=== PATIENT | female | born 1970 | race Caucasian/White ===

== ENCOUNTER 2021-11-11 16:38 | Inpatient (IN) | payer BC, SELFPAY ==
[2021-11-11 16:53] VITALS: BMI 25.1
[2021-11-11 16:54] VITALS: BP 148/106; PULSE 97; RESP 18; TEMP 36.5; O2SAT 98
[2021-11-11] MEDS: trazodone 50 mg Tablet PO (21:53)
[2021-11-11] MEDS: quetiapine 25 mg Tablet 50 MG PO (21:53)
[2021-11-11] MEDS: CLONazepam 0.5 mg Tablet PO (21:53)
[2021-11-11 22:00] VITALS: RESP 16
--- NOTE | 2021-11-12 04:39 | PC.NURSE ---
PT HAS BEEN UP MOST OF NIGHT AND NOT BEEN ABLE TO SLEEP MORE THAN SHORT PERIODS. 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 PT AGITATED ABOUT HER PHONE NOT BEING BROUGHT TO NPU. DOES NOT FEEL NEED TO BE HERE SHE STATES THAT THIS WAS ALL A MISUNDERSTANDING AND WAS NOT A SUICIDE ATTEMPT. PT ADVISED TO DISCUSS CONCERNS WITH IN MORNING.
[2021-11-12 06:00] VITALS: BP 143/102; PULSE 82; RESP 18; TEMP 36.3; O2SAT 100
[2021-11-12] MEDS: venlafaxine ER (24HR) 150 mg Capsule 300 MG PO (08:58)
[2021-11-12] MEDS: levothyroxine 100 mcg Tablet PO (08:59)
[2021-11-12] MEDS: CLONazepam 0.5 mg Tablet PO ×2 (08:59→18:18)
[2021-11-12 09:00] VITALS: BP 143/107
[2021-11-12] MEDS: losartan 50 mg Tablet 100 MG PO (09:00)
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
[2021-11-12 14:00] VITALS: BP 96/62; PULSE 73; RESP 16
--- NOTE | 2021-11-12 17:12 | PC.SOCIAL ---
Patient did not attend group.
[2021-11-12] MEDS: atorvastatin 40 mg Tablet 20 MG PO (18:18)
[2021-11-12] MEDS: nicotine 2 mg Gum BUCCAL (19:53)
[2021-11-12] MEDS: quetiapine 25 mg Tablet 50 MG PO (20:28)
[2021-11-12 21:28] VITALS: BP 147/104; PULSE 82; RESP 19; TEMP 36.7; O2SAT 97
[2021-11-13 06:00] VITALS: BP 102/63; PULSE 78; RESP 16; TEMP 36.6; O2SAT 96
[2021-11-13] MEDS: venlafaxine ER (24HR) 150 mg Capsule 300 MG PO (08:19)
[2021-11-13] MEDS: losartan 50 mg Tablet 100 MG PO (08:19)
[2021-11-13] MEDS: CLONazepam 0.5 mg Tablet PO ×2 (08:20→17:39)
[2021-11-13] MEDS: levothyroxine 100 mcg Tablet PO (08:20)
[2021-11-13 13:42] VITALS: BP 118/80; PULSE 87; RESP 18; TEMP 36.5; O2SAT 95
--- NOTE | 2021-11-13 14:52 | P.NPUPN_ITS ---
Subjective NPU Subjective: Patient presents today reporting that she is doing much better. She spent most of the session apologizing for her behavior and reporting an epiphany. She endorses that she was lying to this functional tester typewriters and that she got upset because she got caught in the line. Part of her anger was at her self. Part of her anger was an embarrassment for how she has become. She endorsed excepting that she on a 96-hour hold and wanting to make sure that she uses this opportunity to get better. She reports that she feels like if we had not treated her the way we did that things could have turned out really poorly if she discharged. We discussed the importance of her talking to a therapist here and when she leaves and explained that Dr. Cueto would be there tomorrow taking a fresh look at the situation and discharging her when he felt was appropriate. Mental Status Exam MSE Comments: This is an obese, white female, in hospital scrubs, with adequate grooming, and eye contact. No abnormal movements. Cooperative with exam in no acute distress. Speech was normal rate and volume. Mood described as much better; affect congruent. Thought process, organized. Thought content: patient denied any suicidal or homicidal ideation, there were no delusions reported or noted, patient denied any auditory or visual hallucinations. Attention, concentration, and memory appear intact but were not formally tested. She is alert and oriented times three. Insight and judgment improving; impulse control improving. Vitals/I&O/Wt Last Vital Signs Temp 97.7 F 11/13/21 13:42 Pulse 87 11/13/21 13:42 Resp 18 11/13/21 13:42 BP 118/80 11/13/21 13:42 Pulse Ox 95 11/13/21 13:42 A&P Assessment and plan (1) Borderline personality disorder: Status: Acute (2) Cluster B personality disorder in adult: Status: Acute (3) Intentional overdose: Status: Acute (4) PTSD (post-traumatic stress disorder): Status: Acute Plan This is a 51-year-old, white female, who presents with an affidavit from an outside hospital reporting that she identified herself as overdosing on 20 pills with a mixture of Seroquel and Klonopin, who presents now denying this occurred or that she ever said that and wanting to leave. 1. Continue current medication. 2. Encourage individual, group, and milieu therapy. 3. Continue q-15 minute checks for safety. 4. Patient was placed on a 96-hour hold. Involuntary Hold Information 96 Hour Hold: 96 Hour Involuntary Admission: No Attestations NPU Medical Necessity Statement*: Inpatient hospitalization is medically necessary and the clinically appropriate intervention, at this time. We will monitor medications and make changes as indicated. Likely length of stay is 1-3 days. Coding Level of Care Code Acute Day Care Director for [facility] Fwd Diagnoses Borderline personality disorder F60.3 Cluster B personality disorder in adult F60.9 Intentional overdose T50.902A PTSD (post-traumatic stress disorder) F43.10
[2021-11-13] MEDS: nicotine 2 mg Gum BUCCAL (16:59)
[2021-11-13] MEDS: atorvastatin 40 mg Tablet 20 MG PO (17:39)
[2021-11-13] MEDS: quetiapine 25 mg Tablet 50 MG PO (20:40)
[2021-11-13 21:06] VITALS: RESP 16
[2021-11-14 06:00] VITALS: BP 135/94; PULSE 69; RESP 16; TEMP 36.6; O2SAT 99
[2021-11-14] MEDS: levothyroxine 100 mcg Tablet PO (09:46)
[2021-11-14] MEDS: CLONazepam 0.5 mg Tablet PO (09:46)
[2021-11-14] MEDS: venlafaxine ER (24HR) 150 mg Capsule 300 MG PO (09:46)
[2021-11-14] MEDS: losartan 50 mg Tablet 100 MG PO (09:46)
[2021-11-14] MEDS: nicotine 2 mg Gum BUCCAL (09:46)
--- NOTE | 2021-11-14 13:53 | PC.SOCIAL ---
Patient attended group.
[2021-11-14 14:00] VITALS: BP 157/123; PULSE 84; RESP 17; TEMP 37; O2SAT 99
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
[2021-11-14] MEDS: hyDROXYzine 25 mg Capsule 50 MG PO (14:39)
--- NOTE | 2021-11-14 14:45 | PC.NURSE ---
PRN MEDICATION ON PHONE AND BECAME IRRITATED AND SLAMMED PHONE DOWN HARD ON THE HOOK. BP WAS ELEVATED TO 157/123. ASKED IF SHE WAS HAVING ANXIETY AND PT STATED YES SHE WOULD LIKE SOMETHING FOR IT. VISTRIL 50 MG GIVEN ORDERED FOR ANXIETY AND AGITATION
[2021-11-14 15:11] VITALS: BP 157/123; PULSE 84; RESP 17; TEMP 37; O2SAT 99
--- NOTE | 2021-11-14 15:50 | PC.NURSE ---
DISCHARGE NOTE DISCHARGE TEACHING COMPLETED, EDUCATION PROVIDED ON CONTINUED MEDICATIONS, UPCOMING APPOINTMENTS AND DISCHARGE INSTRUCTIONS. VERBALIZES UNDERSTANDING. SIGNED HOME MEDICATION SHEET, ALL MEDICATIONS RETURNED. RETURNED CLOTHING AND JEWLRY, BELONGINGS SHEET SIGNED THAT PT HAS RECEIVED ALL BELONGINGS. VSS, DENIES PAIN, DENIES SI/HI AND AVH AT THIS TIME. LEFT WITH FAMILY MEMBER VIA POV. NO DISTRESS NOTED UPON DISCHARGE. ALL QUESTIONS ANSWERED AND SUPPORT VOICED.
== END 2021-11-14 15:51 | disposition home or self-care (01) | DRG 918 ==
PROVIDERS: Admitting Provider Psychiatry & Neurology Psychiatry; Visit Provider Psychiatry & Neurology Psychiatry
DX: T43.592A Poisoning by other antipsychotics and neuroleptics, intentional self-harm, initial encounter (principal); F43.10 Post-traumatic stress disorder, unspecified; F60.3 Borderline personality disorder; F60.9 Personality disorder, unspecified
CPT/HCPCS: 97150; 97165